=== PATIENT | male | born 1965 | race African-American/Black ===

== ENCOUNTER 2018-07-17 06:45 | Day surgery (SDC) | payer OTHER ==
[2018-07-10 12:00] LABS: HEMATOCRIT 44.3 % (37.9-51.0); HEMOGLOBIN 15.5 g/dL (13.5-17.0); MEAN CORPUSCULAR HEMOGLOBIN 34.1 pg (27.0-33.4); MEAN CORPUSCULAR VOLUME 98 fl (80-97); PLATELET COUNT 201 10^3/uL (150-450); RED BLOOD COUNT 4.55 10^6/uL (4.35-5.55); RED CELL DISTRIBUTION WIDTH 13.9 % (11.5-14.0); WHITE BLOOD COUNT 6.1 10^3/uL (4.0-10.5)
--- NOTE | 2018-07-10 20:54 | EKG REPORT ---
SEVERITY:- NORMAL ECG - SINUS RHYTHM : Confirmed by: Johnson Finney 10-Jul-2018 20:54:03
[~2018-07-17 06:45] MED LIST: ACETAMINOPHEN 325 MG TABLET PO PRN; LACTATED RINGERS 1000 ML IV PRN; LIDOCAINE 0.5% INJ-PF (5 MG/ML) 50 ML SDV SUBCUT PRN
[2018-07-17] MEDS ORDERED: DEXMEDETOMIDINE INJ 80 MCG/20 ML VIAL IV ONE (08:11)
[2018-07-17] MEDS ORDERED: FENTANYL CITRATE INJ/PF 100 MCG/2 ML AMPUL IV PRN ×3 (08:31)
[2018-07-17] MEDS ORDERED: PROPOFOL INJ 200 MG/20 ML VIAL IV ONE (09:21)
--- NOTE | 2018-07-17 09:28 | Discharge Summary ---
Discharge Summary (SDC) - Discharge Final Diagnosis: colon polyps Date of Surgery: 07/17/18 Discharge Date: 07/17/18 Condition: Stable Treatment or Instructions: Discharge home. Diet as tolerated. Activity: Nonstrenuous. Follow-up with me in 1-2 weeks. Referrals: KOJO MACEDO MD [Primary Care Provider] - Discharge Diet: As Tolerated Respiratory Treatments at Home: Deep Breathing/Coughing, Incentive Spirometer Discharge Activity: Activity As Tolerated Home Care Assistance: None Needed Report the Following to Your Physician Immediately: Shortness of Breath, Nausea, Vomiting, Yellow Skin, Fever over 101 Degrees, Unusual Bleeding, Redness
--- NOTE | 2018-07-17 09:34 | Operative Report ---
Nonrecallable Operative Report DATE OF SURGERY: 07/17/18 PREOPERATIVE DIAGNOSIS: History of colon polyps POSTOPERATIVE DIAGNOSIS: Multiple colon polyps OPERATION: 1. Colonoscopy. 2. Hot biopsy of multiple small colon polyps. SURGEON: CARLOS ALBERTO ANESTHESIA: LMAC TISSUE REMOVED OR ALTERED: 1. Hot biopsy of cecal polyp. 2. Hot biopsy of polyp at 40 cm x2. 3. Hot biopsy of rectal polyp x2 COMPLICATIONS: None apparent ESTIMATED BLOOD LOSS: Minimal PROCEDURE: Drains/implants: None. Procedure in detail: After informed consent was obtained, the patient was brought into the operating room and laid in the left lateral decubitus position. The endoscope was inserted into the rectum. It was passed up the rectum, sigmoid colon, descending colon, across the transverse colon, down the ascending colon, and into the cecum. The ileocecal valve and appendiceal orifice were identified. The scope was then withdrawn, circumferentially noting the mucosa. The prep was fair. Multiple washings and suctioning were required in order to visualize the entirety of the mucosa. This was successful. In the cecum, a small polyp was identified. It was removed via hot biopsy forceps. The scope was withdrawn past the ascending colon, transverse colon, down the descending colon, and into the sigmoid colon. At approximately 40 cm 2 small polyps were found in close proximity to one another. They were removed via hot biopsy forcep. The scope was then withdrawn down into the rectum, where 2 more small polyps were removed via hot biopsy forceps. The scope was then retroflexed in the rectum, noting moderate internal hemorrhoids that were not bleeding. The scope was straightened, air was suctioned from the rectum, the scope was removed, and the procedure was concluded. All sponge, instrument, and needle counts were correct. Condition: Stable.
[2018-07-17 10:27] VITALS: BP 109/66
== END 2018-07-17 10:25 | disposition home or self-care (01) ==
LOC: OROUT 06:45
PROVIDERS: ATTEND Surgery
DX: Z12.11 Encounter for screening for malignant neoplasm of colon (principal); Z86.010 Personal history of colon polyps; D12.0 Benign neoplasm of cecum; K63.5 Polyp of colon; K64.8 Other hemorrhoids; K21.9 Gastro-esophageal reflux disease without esophagitis; G89.29 Other chronic pain; F17.210 Nicotine dependence, cigarettes, uncomplicated; Z79.899 Other long term (current) drug therapy
CPT/HCPCS: 45384; 93005; 36415; 85027; 88305 ×2; 93010; J2704; J3490; 811